=== PATIENT | male | born 1985 | race Caucasian/White ===

== ENCOUNTER 2019-03-20 14:00 | Day surgery (SDC) | payer BC ==
[2019-03-20] MEDS ORDERED: Marcaine 0.5% SDV 10 ML IJ ONE (14:01)
[2019-03-20] MEDS ORDERED: Xylocaine 1% Vial 30 ML PF IJ ONE (14:01)
--- NOTE | 2019-03-20 18:39 | XRAY ---
18 seconds of fluoroscopy was used in surgery for a ganglion impar nerve block.
--- NOTE | 2019-03-20 18:49 | XRAY ---
Indication: Ganglion nerve block. Intraoperative fluoroscopy was provided for 18 seconds. Single digital spot image submitted for interpretation demonstrates posterior needle tip projecting just anterior to the sacrococcygeal junction. Small amount of contrast injected for needle tip placement. Correlate with intraoperative findings/report.
== END 2019-03-20 17:33 | disposition home or self-care (01) ==
LOC: SDC-PAIN 14:00
PROVIDERS: ATTEND Psychiatry & Neurology Pain Medicine
DX: M53.3 Sacrococcygeal disorders, not elsewhere classified (principal); Z79.899 Other long term (current) drug therapy
CPT/HCPCS: 64999; 72020; 77002; J2001; Q9966

== ENCOUNTER 2019-05-01 11:14 | Day surgery (SDC) | payer BC ==
[2019-05-01] MEDS ORDERED: Marcaine 0.5% SDV 10 ML IJ ONE (11:15)
[2019-05-01] MEDS ORDERED: Xylocaine 1% Vial 30 ML PF IJ ONE (11:15)
--- NOTE | 2019-05-02 02:38 | XRAY ---
Indication: Ganglia impar nerve block. Intraoperative fluoroscopy was provided for 15 seconds. A single lateral digital spot film was obtained. The needle tip is seen projected over the anterior aspect of the proximal coccyx. Some contrast material has been injected for needle tip placement. Correlate with intraoperative findings/report.
--- NOTE | 2019-05-02 12:02 | XRAY ---
15 seconds fluoroscopy time in surgery for ganglion impar nerve block.
== END 2019-05-01 13:05 | disposition home or self-care (01) ==
LOC: SDC-PAIN 11:14
PROVIDERS: ATTEND Psychiatry & Neurology Pain Medicine
DX: M53.3 Sacrococcygeal disorders, not elsewhere classified (principal); Z79.899 Other long term (current) drug therapy
CPT/HCPCS: 64999; 72020; 77002; J2001; Q9966

== ENCOUNTER 2019-05-29 12:31 | Day surgery (SDC) | payer BC ==
[2019-05-29] MEDS ORDERED: Xylocaine 1% Vial 30 ML PF IJ ONE (12:32)
[2019-05-29] MEDS ORDERED: Sodium Chloride 0.9(Preservative Free) 10 ML IJ ONE (12:32)
[2019-05-29] MEDS ORDERED: Depo-Medrol 40 MG/ML IM ONE (12:32)
--- NOTE | 2019-05-29 15:09 | XRAY ---
Indication: Lumbar ROSHAN. Intraoperative fluoroscopy was provided for 14 seconds. 2 digital spot images submitted for interpretation demonstrate midline posterior needle tip projecting posterior to the L4 segment. Small amount of contrast injected for needle tip placement. Correlate with intraoperative findings/report. Incidental L5-S1 posterior fusion hardware and intervertebral spacer
--- NOTE | 2019-05-29 15:41 | XRAY ---
14 seconds fluoroscopy time in surgery for lumbar ROSHAN.
== END 2019-05-29 14:10 | disposition home or self-care (01) ==
LOC: SDC-PAIN 12:31
PROVIDERS: ATTEND Psychiatry & Neurology Pain Medicine
DX: M54.16 Radiculopathy, lumbar region (principal); Z79.899 Other long term (current) drug therapy
CPT/HCPCS: 62323; 72100; 77003; J1030; J2001; Q9966

== ENCOUNTER 2020-10-28 14:11 | Day surgery (SDC) | payer BC ==
[2020-10-28] MEDS ORDERED: Depo-Medrol 40 MG/ML IM ONE (14:12)
[2020-10-28] MEDS ORDERED: Sodium Chloride 0.9(Preservative Free) 10 ML IJ ONE (14:12)
[2020-10-28] MEDS ORDERED: Xylocaine 1% Vial 30 ML PF IJ ONE (14:12)
--- NOTE | 2020-10-28 16:33 | XRAY ---
Indication: Lumbar ROSHAN. Intraoperative fluoroscopy provided for 20 seconds. 2 digital spot images submitted for interpretation demonstrates midline posterior needle tip projecting just posterior to the L3-L4 interspace. Small amount of contrast injected for needle tip placement. Correlate with intraoperative findings/report. Incidental L5-S1 fusion surgery with partially visualized bilateral fusion hardware and intervertebral spacer.
--- NOTE | 2020-10-28 16:45 | XRAY ---
20 seconds fluoroscopy time in surgery for lumbar ROSHAN.
== END 2020-10-28 15:49 | disposition home or self-care (01) ==
LOC: SDC-PAIN 14:11
PROVIDERS: ATTEND Psychiatry & Neurology Pain Medicine
DX: M54.16 Radiculopathy, lumbar region (principal); M19.90 Unspecified osteoarthritis, unspecified site; Z79.899 Other long term (current) drug therapy
CPT/HCPCS: 62323; 72100; 77003; J1030; J2001; Q9966